=== PATIENT | female | born 1985 | race Caucasian/White ===

== ENCOUNTER 2020-02-19 22:35 | Inpatient (IN) | payer OTHER, SELFPAY ==
[~2020-02-19] VITALS: Ht 165.1 cm; Wt 61.2 kg
[2020-02-19] MEDS ORDERED: TERBUTALINE SULFATE 1 MG/ML VIAL SUBCUT ONE (23:15)
[2020-02-19] MEDS ORDERED: LR 1,000 ML IV SCH (23:15)
[2020-02-19] MEDS ORDERED: OXYTOCIN/0.9 % SODIUM CHLORIDE 1,000 ML IV SCH (23:15)
[2020-02-19] MEDS ORDERED: NALOXONE HCL 0.4 MG/ML AMP (NARCAN) IVP PRN (23:45)
[2020-02-19] MEDS ORDERED: MORPHINE SULFATE 10 MG/ML VIAL IVP PRN (23:45)
[2020-02-19 23:52] LABS: BASOPHILS % (AUTO) 0.3 % (0.0-2.0); EOSINOPHILS # (AUTO) 0.2 K/uL (0.0-0.4); EOSINOPHILS % (AUTO) 1.1 % (0.0-4.0); HEMATOCRIT 36.5 % (36-48); HEMOGLOBIN 12.4 g/dL (12.0-16.0); LYMPHOCYTES # (AUTO) 2.3 K/uL (1.0-5.5); LYMPHOCYTES % (AUTO) 14.2 % (20.5-51.5); MEAN CORPUSCULAR HEMOGLOBIN 32 pg (27-31); MEAN CORPUSCULAR HGB CONC 34 % (32-36); MEAN CORPUSCULAR VOLUME 95 fL (79.0-98.0); MONOCYTES % (AUTO) 6.4 % (1.7-9.3); NEUTROPHILS # (AUTO) 12.7 K/uL (1.8-7.7); PLATELET COUNT (AUTO) 200 K/uL (130-430); RED BLOOD CELL COUNT(AUTO) 3.85 MIL/uL (4.2-6.2); RED CELL DISTRIBUTION WIDTH 12.7 % (9.0-15.0); WHITE BLOOD COUNT (AUTO) 16.3 K/uL (4.8-10.8)
[2020-02-20] MEDS ORDERED: HYDROCORTISONE 0.5%, 28.35 GM TOPICAL CREAM TP PRN (00:15)
[2020-02-20] MEDS ORDERED: DOCUSATE SODIUM 100 MG CAPSULE PO PRN (00:15)
[2020-02-20] MEDS ORDERED: MEASLES,MUMPS&RUBELLA VACC/PF 12500 UNIT/0.5 ML VIAL SUBQ PRN (00:15)
[2020-02-20] MEDS ORDERED: WITCH HAZEL LEAF 1 MED.PAD MED.PAD TP PRN (00:15)
[2020-02-20] MEDS ORDERED: RHO(D) IMMUNE GLOBULIN/MALTOSE 1500 UNITS/1.3 ML (WINHRO) IM PRN (00:15)
[2020-02-20] MEDS ORDERED: LANOLIN 7 GM OINT. TP PRN (00:15)
[2020-02-20] MEDS ORDERED: ANUSOL 1 EA SUPP.RECT (PREPARATION H) RC PRN (00:15)
[2020-02-20] MEDS ORDERED: METHYLERGONOVINE MALEATE 0.2 MG TABLET PO PRN (00:15)
[2020-02-20] MEDS ORDERED: DERMOPLAST SPRAY TP PRN (00:15)
[2020-02-20] MEDS ORDERED: DIPH-TET-PERTUS Vaccine 0.5 ML VIAL (ADACEL) I.M. PRN (00:15)
[2020-02-20] MEDS ORDERED: OXYTOCIN/0.9 % SODIUM CHLORIDE 1,000 ML IV SCH (00:15)
[2020-02-20] MEDS ORDERED: SENNOSIDES/DOCUSATE SODIUM 1 TAB TABLET(SENOKOT-S) PO PRN (00:15)
[2020-02-20] MEDS ORDERED: TEMAZEPAM 15 MG CAPSULE PO PRN (00:15)
[2020-02-20] MEDS ORDERED: PHENYLEPH/MINERAL OIL/PETROLAT 45 GM OINT.APPL TP PRN (00:45)
[2020-02-20 01:34] VITALS: BP_SYST 117
[2020-02-20 07:47] VITALS: BP_SYST 124
[2020-02-20] MEDS ORDERED: FLU VACC QS2020-21 (6 mos & up) 0.5 ML/SYRINGE I.M. PRN (08:00)
[2020-02-20] MEDS ORDERED: LIDOCAINE PF 1% 30ML(POUR BTL) INJ ONE (10:28)
[2020-02-20] MEDS: IBUPROFEN 600 MG TABLET PO SCH ×3 (12:06→17:35)
[2020-02-20] MEDS ORDERED: OXYCODONE/ACETAMINOPHEN 5-325 TABLET PO PRN (22:30)
[2020-02-20] MEDS ORDERED: HYDROcodone/ACETAMIN 5-325 MG TAB (NORCO/ VICODIN) PO PRN (22:30)
[2020-02-20] MEDS ORDERED: OXYCODONE/ACETAMINOPHEN 5-325 TABLET ONE (22:34)
[2020-02-21] MEDS: IBUPROFEN 600 MG TABLET PO SCH ×3 (00:23→05:52)
[2020-02-21 07:38] LABS: HEMATOCRIT 30.9 % (36-48); HEMOGLOBIN 10.5 g/dL (12.0-16.0)
== END 2020-02-21 11:00 | disposition home or self-care (01) | DRG 560 ==
LOC: OBSVTOIN 22:35 → SPU 22:35
PROVIDERS: ADMIT Obstetrics & Gynecology; ATTEND Obstetrics & Gynecology
PROC: 10E0XZZ Delivery of Products of Conception, External Approach (ICD-10-PCS; principal; 2020-02-20)
DX: O80 Encounter for full-term uncomplicated delivery (principal); Z20.828 Contact with and (suspected) exposure to other viral communicable diseases; Z88.2 Allergy status to sulfonamides; D62 Acute posthemorrhagic anemia; Z37.0 Single live birth; Z3A.39 39 weeks gestation of pregnancy
CPT/HCPCS: 36415; 81002-TC; 85018-TC; 85025; 86886; 86900; 86901; J2001; J2590